=== PATIENT | female | born 1985 | race Caucasian/White ===

== ENCOUNTER 2020-10-20 10:22 | Outpatient (CLI) | payer OTHER | END 2020-10-20 10:27 | disposition home or self-care (01) | LOC: RX STUDY 10:22 | PROVIDERS: ATTEND Obstetrics & Gynecology Obstetrics | DX: Q51.810 Arcuate uterus (principal); N94.89 Other specified conditions associated with female genital organs and menstrual cycle; N97.1 Female infertility of tubal origin; Q50.6 Other congenital malformations of fallopian tube and broad ligament ==